=== PATIENT | female | born 1965 | race Caucasian/White ===

== ENCOUNTER 2021-09-23 15:50 | Emergency (ER) | payer OTHER ==
[~2021-09-23 15:50] MED LIST: VOLTAREN **OUT50 MG PO
[2021-09-23 16:55] LABS: BASOPHIL 0.9 % (0-2); EOSINOPHIL 2.8 % (0-5); HCT 40.5 % (37.0-47.0); HGB 13.4 g/dl (12.5-16.0); LYMPHOCYTE 43.8 % (15-48); MCH 29.5 pg (25.0-31.0); MCHC 33.1 g/dL (32.0-36.0); MCV 89.2 fL (78.0-100.0); MONOCYTE 10.5 % (0-12); MPV 10.3 fL (6.0-9.5); NEUTROPHIL 41.8 % (41-80); NRBC 0; PLT 247 K/uL (150-400); RBC 4.54 M/uL (4.20-5.40); RDW 12.5 % (11.5-14.0); WBC 5.8 K/uL (4.0-10.5)
[2021-09-23 17:40] LABS: BUN/CREAT RATIO (CALC) 31.4 RATIO; CREATININE 0.7 mg/dL (0.51-0.95)
[2021-09-23] MEDS ORDERED: HYDRALAZINE25 MG PO (18:56)
[2021-09-23] MEDS ORDERED: NORVASC10 MG PO (18:56)
[2021-09-23] MEDS ORDERED: HCTZ25 MG PO (18:56)
== END 2021-09-23 20:45 ==
LOC: FER 15:50
PROVIDERS: Nurse Practitioner Family
DX: I10 Essential (primary) hypertension (principal); R51.9 Headache, unspecified; Z88.6 Allergy status to analgesic agent
CPT/HCPCS: 36415; 71045; 80048; 83880; 84484; 85025; J1170; J2405; J3490